=== PATIENT | female | born 1950 | race Caucasian/White ===

== ENCOUNTER 2020-06-22 11:15 | Emergency (ER) | payer MEDICARE, SELFPAY ==
[2020-06-22] VITALS (20 sets, daily range): BP systolic 128–174; BP diastolic 62–106; PULSE 69–80; RESP 11–22; TEMP 36.9; O2SAT 93–100
--- NOTE | ~2020-06-22 | CT_ITS ---
EXAMINATION: CTA chest PE protocol DATE: 06/22/2020 13:35 INDICATION: Dyspnea. Elevated d-dimer. TECHNIQUE: Computed tomography angiography (CTA) of the chest was performed with 100 mL Omnipaque-350 intravenous contrast timed to evaluate the pulmonary arteries. Coronal maximum intensity projection 3D-reconstructions were created by the technologist. Automated exposure control and iterative reconst ruction technique were employed. Exam dose: 789.78 mGy-cm total exam DLP. Scan COMPARISON: 06/22/2020 2 view chest FINDINGS: There is diagnostic contrast enhancement of the pulmonary arteries and no evidence of pulmo nary embolism. No thoracic aortic aneurysm or dissection. Heart size is within normal limits. No hilar or mediastinal mass lesion or lymphadenopathy. No pulmonary infiltrate or consolidation or suspicious pulmonary mass lesion is detected. Normal morphology of the adrenal glands. No suspicious osteolytic or osteoblastic lesions. Degenerative changes of the thoracic spine. IMPRESSION: No evidence of pulmonary embolism Reviewed, dictated and finalized at [facility]. Reviewed, dictated and finalized at location A. [employer]
--- NOTE | ~2020-06-22 | XR_ITS ---
XR chest 2V DATE: 06/22/2020 12:07 INDICATION: Left-sided chest pain. Dyspnea. TECHNIQUE: PA and lateral views COMPARISON: 12/16/2018 2 view chest FINDINGS: Heart size is within normal limits. There is minimal aortic unfolding. No hilar or mediasti nal enlargement. No pulmonary infiltrate or consolidation, pleural effusion or pulmonary vascular congestion or pneumo thorax. IMPRESSION: No active cardiopulmonary disease Reviewed, dictated and finalized at location A. TATION SUPERVISOR
--- NOTE | ~2020-06-22 | CT_ITS ---
EXAMINATION: CT brain wo con DATE: 06/22/2020 12:17 INDICATION: Hypertension presenting with headache and dizziness TECHNIQUE: Computed tomography (CT) of the head was performed without intravenous contrast. Sagittal and coronal reconstructions were performed. The mA was adjusted according to patient size. Iterative reconstruction technique was employed. The dose-length product was 605.33 mGy-cm. COMPARISON: head CT dated 11/02/2007 FINDINGS: No acute intracranial hemorrhage, acute infarction or abnormal extra axial fluid collection. Unchange d small old lacunar infarct at the right caudate nucleus. Symmetric prominence of the sulci and subar achnoid spaces overlying the convexities consistent with mild to moderate age-appropriate diffuse cer ebral volume loss. Ventricles are normal and symmetric. No mass/mass effect. Changes of bilateral int raocular lens replacement. The orbits, paranasal sinuses and mastoid air cells are normal. IMPRESSION: 1. Unchanged small old lacunar infarct at the right caudate nucleus. No acute intracranial process. Reviewed, dictated and finalized at location [facility]. GYNECOLOGY IMPRESSION: 1. Unchanged small old lacunar infarct at the right caudate nucleus. No acute i ntracranial process.
--- NOTE | 2020-06-22 11:21 | ED.CHESTPAIN ---
HPI - Chest Pain General Chief Complaint: Chest Pain Stated Complaint: High BP, left arm pain Time Seen by Provider: 06/22/20 11:21 Source: patient and family Mode of arrival: ambulatory Limitations: no limitations History of Present Illness HPI narrative: Patient is a 69-year-old female with a history of anxiety, depression, hypertension who presents for evaluation of left-sided chest pain, arm pain, shortness of breath. Her symptoms have been present for three weeks. No worsening chest pain today. No new arm pain or jaw pain today. Patient states she was referred here by her psychiatrist after having her psychiatry appointment this morning when she explained some of her symptoms to him. She states that she recently discontinued her Xanax medication 3 weeks ago, and initially attributed many of the symptoms which have been ongoing over the past 3 weeks to that. She states that at times she has been dizzy with awakening but that it is intermittent throughout the day. She denies nausea, vomiting. No central chest pain but does report she has some soreness over her left chest and into her left shoulder, but denies any recent heavy lifting. She states she feels short of breath without any cough. No fever, chills, rhinorrhea or congestion. No myalgias. No abdominal pain, no flank pain. Patient has been ambulatory. She states she has had a headache as well. She states she has been more anxious lately, but denies new stress. No calf swelling or leg pain. No recent surgeries or recent travel. She is also reporting some mild left ear pain without discharge. Related Data Home Medications Medication Instructions Recorded Confirmed alprazolam 0.25 mg tablet 0.25 mg PO DAILY PRN 03/21/20 05/02/20 aspirin 81 mg tablet,delayed 81 mg PO DAILY 03/21/20 05/02/20 release calcium carbonate 500 mg calcium 500 mg PO DAILY 03/21/20 05/02/20 (1,250 mg) tablet cholecalciferol (vitamin D3) 50 50 mcg PO DAILY 03/21/20 05/02/20 mcg (2,000 unit) capsule citalopram 20 mg tablet 20 mg PO DAILY 03/21/20 05/02/20 lamotrigine 25 mg tablet 50 mg PO DAILY tablet 03/21/20 05/02/20 mecobalamin (vitamin B12) 1,000 1,000 mcg PO DAILY 03/21/20 05/02/20 mcg chewable tablet methylphenidate HCl 10 mg tablet 10 mg PO DAILY 03/21/20 05/02/20 Allergies Allergy/AdvReac Type Severity Reaction Status Date / Time Sulfa (Sulfonamide Allergy Unknown Unknown Verified 06/22/20 11:36 Antibiotics) Review of Systems Review of Systems: Narrative: CONSTITUTIONAL: Denies fever, chills, or sweats. EYES: Denies visual changes, redness, or discharge. ENT: Denies rhinorrhea, congestion, sore throat, left ear pain. CARDIOVASCULAR: Reports soreness overlying the left chest, denies palpitations or edema RESPIRATORY: Denies cough, reports shortness of breath GASTROINTESTINAL: Denies abdominal pain, nausea, vomiting, or diarrhea. GENITOURINARY: Denies dysuria or hematuria. SKIN: Denies rash or itching. MUSCULOSKELETAL: Denies back pain, joint pain, or myalgia. NEUROLOGIC: Reports headache without numbness, or weakness. PSYCHIATRIC: Reports anxiety and depression [facility] Past Medical History Medical History Cataract Essential (primary) hypertension Gastro-esophageal reflux disease without esophagitis High cholesterol History of blood transfusion History of colon cancer Major depressive disorder, recurrent, moderate Malignant melanoma of skin, unspecified Surgical History Surgical History History of carpal tunnel repair History of colon resection History of hysterectomy History of incisional hernia repair January 2019 Dr. Mariano History of tonsillectomy History of tubal ligation Status post surgical removal of malignant neoplasm of skin Family History Family History Father Family history of cardiovascular dis
--- NOTE | 2020-06-22 11:25 | ECG_ITS ---
Measurements Intervals [place] Rate: 73 P: 40 ND: 159 QRS: -24 QRSD: 84 T: 21 QT: 352 QTc: 389 Interpretive Statements SINUS RHYTHM BORDERLINE T WAVE ABNORMALITY- ANT/INF LEADS BASELINE WANDER- I, II, AVR, AVL, AVF, V1-V3 BORDERLINE ECG Electronically Signed On 06-22-2020 14:25:57 HRIS SPECIALIST by Jake Carver D.O.
[2020-06-22] MEDS: ASPIRIN 81 MG CHEWABLE TABLET 324 MG PO (11:29)
[2020-06-22 11:38] LABS: Hematocrit 45.6 % (37.0-47.0); Hemoglobin 15.1 g/dL (12.0-15.0); Mean Corpuscular HGB Conc 33.1 g/dl (32-36); Mean Corpuscular Hemoglobin 31.4 pg (26-34); Mean Corpuscular Volume 94.8 fl (80-100); Mean Platelet Volume 10.5 fl (7.4-10.4); Platelet Count Result 377 k/mm3 (150-375); Red Blood Count 4.81 M/mm3 (4.2-5.4); Red Cell Distribution Width 14.4 % (11.5-14.5)
[2020-06-22 11:46] LABS: Atypical Lymphocytes Present; Band Neutrophils Percent 1 % (0-6); Eosinophils Percent Manual 4 % (0-4); Monocytes Percent Manual 14 % (3-9); Neutrophils Percent Manual 41 % (46-73); Platelet Estimate Adequate (Adequate); Total Cells Counted 100
[2020-06-22 11:47] LABS: Stomatocytes 1+ (NORMAL)
[2020-06-22 11:51] LABS: INR 0.8
[2020-06-22 11:52] LABS: Partial Thromboplastin Time 26.3 SECONDS (22.3-36.8)
[2020-06-22 12:03] LABS: Troponin I < 0.012 ng/mL (0.000-0.034)
[2020-06-22 12:11] LABS: D Dimer 0.53 ug/mL (<0.48)
[2020-06-22 12:58] LABS: Anion Gap 10 mmol/L (8-16); Blood Urea Nitrogen 18 mg/dL (7-17); Calcium 10.9 mg/dL (8.4-10.2); Carbon Dioxide 30 mmol/L (22-30); Chloride 101 mmol/L (98-107); Glucose 115 mg/dL (65-105); Potassium 4.7 mmol/L (3.4-5.0); Sodium 141 mmol/L (137-145)
[2020-06-22] MEDS: MECLIZINE HCL 25 MG TABLET PO (13:00)
[2020-06-22 13:04] LABS: Estimated Glomerular Filt Rate > 60
[2020-06-22 13:05] LABS: Estimated CRCL calculation 59 ml/min
[2020-06-22 13:06] LABS: NT Pro B Type Natriuretic Pept 27 PG/ML (5-100)
[2020-06-22] MEDS: MAGNESIUM SULF 2 GM/WATER 50ML 2 GM/50 ML BAG IVPB (13:42)
[2020-06-22] MEDS: SODIUM CHLORIDE 0.9% IV 1,000 ML 999 ML IV CONT (13:43)
[2020-06-22 14:41] LABS: Add Urine Microscopic? YES; Appearance Urine Clear (Clear); Bilirubin Urine Negative (Negative); Blood Urine Negative (Negative); Color Urine Colorless (Yellow); Glucose Urine UA Negative (Negative); Ketones Urine Negative (Negative); Leukocyte Esterase Ur 2+ LEU/UL (Negative); Nitrate Urine Negative (Negative); Protein Urine Negative (Negative); RBC Urine 0-2 /hpf (0-2); Squamous Epithelial Cell Urine Rare /hpf (Few); Urobilinogen Urine Negative mg/dL (<2.0); WBC Urine 21-30 /hpf
[2020-06-22 14:42] LABS: Specific Grav Ur 1.033 (1.001-1.035)
== END 2020-06-22 14:53 | disposition home or self-care (01) ==
PROVIDERS: Emergency Provider Emergency Medicine; PCP Family Medicine
DX: R42 Dizziness and giddiness (principal); R07.89 Other chest pain; R06.02 Shortness of breath; I10 Essential (primary) hypertension; K21.9 Gastro-esophageal reflux disease without esophagitis; F32.9 Major depressive disorder, single episode, unspecified; Z79.899 Other long term (current) drug therapy
CPT/HCPCS: 36415; 70450; 71046; 71275; 80048; 81001; 83880; 84484; 85025; 85380; 85610; 85730; 87086; 93005; 96365; 99284; A9270; J3475; J7030; Q9967

== ENCOUNTER → 2021-05-26 12:56 | Outpatient (CLI) | payer MEDICARE, SELFPAY ==
--- NOTE | ~2021-05-26 | XR_ITS ---
XR hip RT 2V w AP pelvis 05/26/2021 13:36 Indication: Right hip pain Procedure: 3 views right hip Comparison: No prior studies for comparison. Findings: No fracture, subluxation or dislocation. No significant joint space narrowing. There is adelso tomic alignment. Sacral foramen are symmetric. Pelvic rings are intact. Impression: 1: No significant bone or joint abnormality. Reviewed, dictated and finalized at location A. IAC CATH LAB MANAGER Impression: 1: No significant bone or joint abnormality.
--- NOTE | ~2021-05-26 | XR_ITS ---
XR lumbar spine 2-3V 05/26/2021 13:36 Indication: Back pain Procedure: 3 views lumbar spine Comparison: No prior studies for comparison. Findings: Vertebral body heights are maintained. No fracture, subluxation or dislocation. No evidence for spondylolisthesis. There is mild facet degenerative change at L4-5 and L5-S1. Impression: 1: Mild lumbar spondylosis. Reviewed, dictated and finalized at location A. TRIMMER Impression: 1: Mild lumbar spondylosis.
== END ==
PROVIDERS: PCP Family Medicine; Visit Provider Physician Assistant
DX: M25.551 Pain in right hip (principal); M47.896 Other spondylosis, lumbar region
CPT/HCPCS: 72100; 73502

== ENCOUNTER 2022-02-02 10:01 | Outpatient (CLI) | payer MEDICARE, SELFPAY ==
--- NOTE | 2022-02-02 10:06 | EST_ITS ---
Patient Info Name: Sandra Kulkarni Age: 71 years : 1950 Gender: Female Ht: 62 in Wt: 200 lbs BSA: 2.04 m2 HR: 74 bpm BP: 141 / 77 mmHg Heart Rhythm: Sinus Rhythm Technical Quality: Fair Exam Date: 02/02/2022 10:54 AM Exam Location: [facility] Patient Status: Outpatient Admit Date: 02/02/2022 Staff Ordering Physician: Josy Gaitan PA-C Tennis Ball Cover Cementer: Priscilla Eldridge RDCS Attending Provider: MERCEDES RIZVI DO Referring Physician: Arnie VIERA; Exam Type: CA stress echo Study Info Indications R06.02 - Shortness of breath Treadmill exercise stress echocardiogram is performed. Summary 1. 1. Negative Biju exercise stress test for ischemic ST changes by ECG criteria. 2. 2. Reduced functional capacity, achieving 6.8 METs of workload. 3. 3. Baseline hypertension. 4. 4. Appropriate HR response to exercise. 5. 5. Appropriate HR recovery at 1 minute post exercise. 6. 6. Negative stress echocardiogram for ischemia by wall motion analysis. 7. 7. Patient informed of the above results. Stress Echo Findings Left Ventricle Appropriate increase in LV endocardial thickening with systole. Appropriate augmentation of contractility with systole. No wall motion abnormality. Left Ventricle Normal LV systolic function, no wall motion abnormality. Protocol: Biju Stress ECG Details Stage: REST Duration (min): 6 min : 43 sec Speed (mph): 0.0 Grade (%): 0 HR (bpm): 72 SBP (mmHg): 141 DBP (mmHg): 77 METS: --- Stage: REST Duration (min): 17 min : 23 sec Speed (mph): 0.0 Grade (%): 0 HR (bpm): 85 SBP (mmHg): 141 DBP (mmHg): 77 METS: --- Stage: STAGE 1 Duration (min): 1 min : 0 sec Speed (mph): 1.7 Grade (%): 10 HR (bpm): 55 SBP (mmHg): 141 DBP (mmHg): 77 METS: --- Stage: STAGE 1 Duration (min): 2 min : 0 sec Speed (mph): 1.7 Grade (%): 10 HR (bpm): 85 SBP (mmHg): 141 DBP (mmHg): 77 METS: --- Stage: STAGE 1 Duration (min): 3 min : 0 sec Speed (mph): 1.7 Grade (%): 10 HR (bpm): 123 SBP (mmHg): 191 DBP (mmHg): 66 METS: --- Stage: STAGE 2 Duration (min): 1 min : 0 sec Speed (mph): 2.5 Grade (%): 12 HR (bpm): 113 SBP (mmHg): 191 DBP (mmHg): 66 METS: --- Stage: STAGE 2 Duration (min): 1 min : 16 sec Speed (mph): 0.0 Grade (%): 0 HR (bpm): 131 SBP (mmHg): 191 DBP (mmHg): 66 METS: --- Stage: RECOVERY Duration (min): 0 min : 43 sec Speed (mph): 0.0 Grade (%): 0 HR (bpm): 111 SBP (mmHg): 149 DBP (mmHg): 85 METS: --- Stage: RECOVERY Duration (min): 1 min : 43 sec Speed (mph): 0.0 Grade (%): 0 HR (bpm): 86 SBP (mmHg): 149 DBP (mmHg): 85 METS: --- Stage: RECOVERY Duration (min): 2 min : 43 sec Speed (mph): 0.0 Grade (%): 0 HR (bpm): 79 SBP (mmHg): 119 DBP (mmHg): 74 METS: --- Stage: RECOVERY Duration (min):
== END 2022-02-02 10:02 | disposition home or self-care (01) ==
PROVIDERS: PCP Emergency Medicine; Visit Provider Family Medicine
DX: R06.02 Shortness of breath (principal)
CPT/HCPCS: 93351

== ENCOUNTER → 2022-02-21 16:04 | Outpatient (CLI) | payer MEDICARE, SELFPAY ==
--- NOTE | ~2022-02-21 | DEXA_ITS ---
Bone Density Report Name: WILBER DOMINGUEZ Age: 71 Sex: Female Ethnicity: White Date of : 1950 Indication: postmenopausal; screening for osteoporosis; height loss; cancer; hysterectomy; Referring Provider: Josy Gaitan Study: Bone densitometry was performed. Exam Date: February 21, 2022 Accession number: [id number] Bone Density: Region BMD T-score Z-score Classification AP Spine (L1-L4) 1.040 -0.1 2.1 Normal Femoral Neck (Left) 0.719 -1.2 0.7 Osteopenia Total Hip (Left) 0.958 0.1 1.7 Normal Femoral Neck (Right) 0.743 -1.0 0.9 Normal Total Hip (Right) 0.975 0.3 1.8 Normal Total Hip Mean 0.967 0.2 1.8 Normal World Health Organization criteria for BMD impression classify patients as: Normal (T-score at or above -1.0), Osteopenia (T-score between -1.0 and -2.5), or Osteoporosis (T-score at or below -2.5). 10-year Fracture Risk(1): Major Osteoporotic Fracture 8.6% Hip Fracture 1.0% Reported Risk Factors: [place] (), Neck BMD=0.719, BMI=36.4 (1) FRAX(R) Version 3.08. Fracture probability calculated for an untreated patient. Fracture probability may be lower if the patient has received treatment. Clinical Information Provided by Patient: Has used the following medications: Vitamin D Has the following medical conditions: Cancer, Hysterectomy Patient maximum height was 64 Menopause Age: 33 No regular weight bearing exercise Drinks caffeinated beverages Onset of menses at age 11 Number of children 3 Impression: The patient has low bone mass, based on the Left Femoral Neck T-score. The patient has an estimated ten-year risk of hip fracture of 1% and an estimated ten-year risk of major fracture of 8.6%, based on the WHO FRAX algorithm. Discussion: BONE DENSITY IS LOW AT ONE OR MORE SKELETAL SITES. This patient's lowest T-score is low at one or more skeletal sites. It meets the World Health Organization's (WHO) criteria for ?low bone mass? (T-score between -1.0 and -2.5). The patient's 10-year risk of fracture as calculated by FRAX is less than the threshold where pharmacological therapy is recommended by the National Osteoporosis Foundation (NOF). However, all treatment decisions require clinical judgment and consideration of individual patient factors, including patient preferences, comorbidities, previous drug use, risk factors not captured in the FRAX model (e.g., frailty, falls, vitamin D deficiency, increased bone turnover, interval significant decline in bone density) and possible under or overestimation of fracture risk by FRAX. The patient should follow a healthful lifestyle (good nutrition with adequate calcium and vitamin D, and appropriate weight-bearing exercise). Follow-Up: Consider repeating this study in 2 to 3 years to reassess this patient's status, or sooner if
== END ==
PROVIDERS: PCP Physician Assistant; Visit Provider Physician Assistant
DX: Z78.0 Asymptomatic menopausal state (principal); M85.852 Other specified disorders of bone density and structure, left thigh
CPT/HCPCS: 77080

== ENCOUNTER 2022-09-23 11:55 | Emergency (ER) | payer MEDICARE, SELFPAY ==
--- NOTE | 2022-09-23 12:01 | ED.URI ---
HPI - URI/Sore Throat General Chief Complaint: Upper Respiratory Infection Stated Complaint: cough, congestion,wheezing,lt ear pain Time Seen by Provider: 09/23/22 12:01 Source: patient Mode of arrival: ambulatory Limitations: no limitations History of Present Illness HPI Narrative: Yadira is a 72-year-old female patient presenting to the clinic today with complaints of cough, congestion, wheezing, and left ear pain 2 weeks. She reports she was seen by her PCP and diagnosed with bronchitis and given Tessalon Perles and azithromycin. The patient states that she does have an albuterol inhaler to use. She denies any fever or chills MD elicited complaint: cough, nasal congestion and other (Wheezing, left ear pain) Related Data Home Medications Medication Instructions Recorded Confirmed aspirin 81 mg tablet,delayed 81 mg PO DAILY 03/21/20 09/23/22 release (Adult Aspirin Regimen) mecobalamin (vitamin B12) 1,000 1,000 mcg PO DAILY 03/21/20 09/23/22 mcg chewable tablet methylphenidate HCl 10 mg tablet 10 mg PO DAILY 03/21/20 09/23/22 (Ritalin) buspirone 5 mg tablet 5 mg PO BID 07/21/20 09/23/22 sertraline 50 mg tablet 75 mg PO DAILY 12/20/21 09/23/22 metoprolol tartrate 100 1 tablet PO DAILY 09/23/22 09/23/22 mg-hydrochlorothiazide 25 mg tablet Allergies Allergy/AdvReac Type Severity Reaction Status Date / Time Sulfa (Sulfonamide Allergy Unknown Unknown Verified 09/23/22 12:06 Antibiotics) Review of Systems Review of Systems: Pertinent positives per HPI. Patient denies any fever, chills, rash, headache, visual changes, dizziness, cough, shortness of breath, chest pain, palpitations, nausea, vomiting, diarrhea, constipation, abdominal pain, or any urinary issues. [facility] Past Medical History Medical History Cataract Essential (primary) hypertension Gastro-esophageal reflux disease without esophagitis High cholesterol History of blood transfusion History of colon cancer Major depressive disorder, recurrent, moderate Malignant melanoma of skin, unspecified Surgical History Surgical History History of carpal tunnel repair History of colon resection History of hysterectomy History of incisional hernia repair January 2019 Dr. Mariano History of tonsillectomy History of tubal ligation Status post surgical removal of malignant neoplasm of skin Family History Family History Father Family history of cardiovascular disease Diabetes mellitus Family history of malignant neoplasm of skin Hypertension Sibling Family history of malignant neoplasm of breast Hypertension Family history of malignant neoplasm of thyroid Mother Family history of thyroid disease Cerebrovascular accident Hypertension Grandparent Family history of malignant neoplasm of breast Carcinoma of colon Other Family history of allergic disorder Family history of malignant neoplasm Family history of malignant neoplasm of breast in first degree relative Social History Social History Smoking status: Former smoker Second hand tobacco smoke exposure: No Alcohol intake: current Drinks per week: 1 Alcohol use details: social Substance use: never Substance use type: does not use Lack of Transportation: No Lack of Food: Never True Current Housing: I Have Housing Concerned About Future Housing: No Difficulty Paying Gas/Electric Bills: No Difficulty Paying for Meds: No Currently Unemployed: No Education: Decline to Answer Difficulty w/ Childcare or Family Care: No Living arrangements: with family Occupation/Education: retired Gender identity (if verbalized by the patient): Female Spiritual care concerns: Yes (Pentecostalism) Agree to blood products: Yes C
[2022-09-23 12:05] VITALS: BP 129/59; PULSE 76; RESP 16; TEMP 37.2; O2SAT 97
[2022-09-23 12:09] VITALS: BP 129/59; PULSE 76; RESP 16; TEMP 37.2; O2SAT 97
== END 2022-09-23 12:13 | disposition home or self-care (01) ==
PROVIDERS: Emergency Provider Nurse Practitioner Family; PCP Emergency Medicine
DX: J40 Bronchitis, not specified as acute or chronic (principal); H26.9 Unspecified cataract; I10 Essential (primary) hypertension; K21.9 Gastro-esophageal reflux disease without esophagitis; F32.9 Major depressive disorder, single episode, unspecified; Z85.038 Personal history of other malignant neoplasm of large intestine; Z85.828 Personal history of other malignant neoplasm of skin; Z79.82 Long term (current) use of aspirin
CPT/HCPCS: 99213; G0463

== ENCOUNTER → 2022-10-02 09:11 | Outpatient (CLI) | payer MEDICARE, SELFPAY ==
--- NOTE | ~2022-10-02 | CT_ITS ---
CT of the Abdomen and Pelvis: Indication: Umbilical nodule Technique: 2.5 mm axial scans were obtained through the abdomen and pelvis following intravenous adm inistration of 100 cc of Omnipaque 350. Dose reduction technique was used on this scan by utilizing a utomated exposure control and iterative reconstruction technique. The dose-length product (DLP) was 9 68.92 mGy-cm. COMPARISON: 12/08/2018 Findings: Scans through the lung bases are unremarkable. The liver, spleen, pancreas, gallbladder, adrenals and kidneys are within normal limits. No evidence of aortic aneurysm. No lymphadenopathy. No bowel obstruction or bowel wall thickening. There is no evidence to suggest acute appendicitis. Pr obable tiny fat-containing umbilical hernia noted. Images through the pelvis were performed. Urinary bladder unremarkable. Patient is post hysterectomy. No pelvic mass. No ascites. Impression: Probable tiny fat-containing umbilical hernia. No other significant findings. Reviewed, dictated and finalized at [facility]. Impression: Probable tiny fat-containing umbilical hernia. No other significant findings.
[2022-10-02 09:32] LABS: Estimated Glomerular Filt Rate > 60
== END ==
PROVIDERS: PCP Emergency Medicine; Visit Provider Surgery
DX: R10.9 Unspecified abdominal pain (principal); R22.2 Localized swelling, mass and lump, trunk; Z87.19 Personal history of other diseases of the digestive system; Z98.890 Other specified postprocedural states
CPT/HCPCS: 74177; Q9967

== ENCOUNTER → 2022-10-09 08:38 | Outpatient (CLI) | payer MEDICARE, SELFPAY ==
--- NOTE | ~2022-10-09 | XR_ITS ---
Clinical Indication: Cough PA and lateral views of the chest: Comparison: 06/22/2020 Findings: The lungs are clear, without evidence of focal consolidation or pleural effusion. Cardiome diastinal silhouette is within normal limits. Bones and soft tissues are unremarkable. Impression: Normal chest. Reviewed, dictated and finalized at [facility]. Impression: Normal chest.
== END ==
PROVIDERS: PCP Emergency Medicine; Visit Provider Nurse Practitioner Family
DX: R05.9 Cough, unspecified (principal); R06.02 Shortness of breath
CPT/HCPCS: 71046

== ENCOUNTER → 2023-07-16 10:16 | Outpatient (CLI) | payer MEDICARE, SELFPAY ==
--- NOTE | ~2023-07-16 | XR_ITS ---
Left wrist Technique: PA, oblique, lateral, and ulnar deviation views were obtained. Clinical History: Neuralgia Findings: No acute fracture or dislocation is seen. Osseous alignment is anatomic. There is mild dege nerative change at the STT articulations. Soft tissues are unremarkable. Impression: Mild degenerative change of the STT articulations. Reviewed, dictated and finalized at location . OSITION INSTRUCTOR Impression: Mild degenerative change of the STT articulations.
--- NOTE | ~2023-07-16 | XR_ITS ---
Left Hand Technique: PA, oblique, and lateral views were obtained. Clinical History: Neuralgia Findings: No acute fracture or dislocation is seen. Osseous alignment is anatomic. Joint spaces are p reserved. Soft tissues are unremarkable. Impression: Unremarkable left hand. Reviewed, dictated and finalized at location M. NG MANAGER Impression: Unremarkable left hand.
== END ==
PROVIDERS: PCP Emergency Medicine; Visit Provider Emergency Medicine
DX: M79.2 Neuralgia and neuritis, unspecified (principal); M25.542 Pain in joints of left hand
CPT/HCPCS: 73110; 73130

== ENCOUNTER 2023-08-07 13:11 | Outpatient (CLI) | payer MEDICARE, SELFPAY ==
--- NOTE | 2023-08-07 14:30 | NEURO_ITS ---
Impression: # Complains of pain in left mid forearm. # Subtle evolving left Carpal Tunnel Syndrome. # No ulnar neuropathy. # Normal needle/EMG exam including APL. # Clinical correlation recommended. Nerve Conduction Studies Anti Sensory Summary Table Stim Site NR Peak (ms) P-T Amp (?V) Site1 Site2 Delta-P (ms) Dist (cm) Jean (m/s) Left Median Anti Sensory (2-3nd Digit) Wrist 3.3 25.1 Wrist 2-3nd Digit 3.3 14.0 42 Wrist 3.5 18.8 Wrist 2-3nd Digit 3.3 14.0 42 Left Radial Anti Sensory (Base 1st Digit) Wrist 2.0 23.0 Wrist Base 1st Digit 2.0 0.0 Left Ulnar Anti Sensory (5th Digit) Wrist 2.4 24.6 Wrist 5th Digit 2.4 14.0 58 Motor Summary Table Stim Site NR Onset (ms) O-P Amp (mV) Site1 Site2 Delta-0 (ms) Dist (cm) Jean (m/s) Left Median Motor (Abd Poll Brev) Wrist 3.8 2.1 Elbow Wrist 5.0 32.0 64 Elbow 8.8 1.5 Left Ulnar Motor (Abd Dig Minimi) Wrist 2.2 5.9 A Elbow Wrist 5.6 34.0 61 A Elbow 7.8 3.9 F Wave Studies NR F-Lat (ms) L-R F-Lat (ms) Left Median (Mrkrs) (Abd Poll Brev) 27.27 Left Ulnar (Mrkrs) (Abd Dig Min) 26.92 EMG Side Muscle Nerve Root Ins Act Fibs Amp Dur Recrt Comment Left 1stDorInt Ulnar C8-T1 Nml Nml Nml Nml Nml Left Ext Indicis Radial (Post Int) C7-8 Nml Nml Nml Nml Nml Left Ext Digitorum Radial (Post Int) C7-8 Nml Nml Nml Nml Nml Left BrachioRad Radial C5-6 Nml Nml Nml Nml Nml Left PronatorTeres Median C6-7 Nml Nml Nml Nml Nml Left Abd Poll Brev Median C8-T1 Nml Nml Nml Nml Nml Left ABD Dig Min Ulnar C8-T1 Nml Nml Nml Nml Nml Left Abd Poll Long Radial (Post Int) C7-8 Nml Nml Nml Nml Nml MTDD
== END 2023-08-07 13:12 | disposition home or self-care (01) ==
LOC: ANHNEURO 13:13
PROVIDERS: PCP Emergency Medicine; Visit Provider Emergency Medicine
DX: G56.02 Carpal tunnel syndrome, left upper limb (principal)
CPT/HCPCS: 95886; 95909

== ENCOUNTER → 2023-08-14 13:42 | Outpatient (CLI) | payer MEDICARE, SELFPAY ==
--- NOTE | ~2023-08-14 | XR_ITS ---
EXAMINATION: XR_CERV2-3V_CR DATE: 08/14/2023 13:56 INDICATION: Neuralgia and neuritis, unspecified. TECHNIQUE: 3 views of cervical spine were obtained. COMPARISON: None. FINDINGS: Bone alignment is normal. Vertebral body heights are normal. There is mildly decreased disc height at C4-C5 and moderately decreased disc height at C6-C7. There is multilevel mild facet joint osteoarthritis. There is mild central canal stenosis at C6-C7. No prevertebral soft tissue swelling. IMPRESSION: 1. Moderate cervical spondylosis. Reviewed, dictated and finalized at location E. ROUGHER
== END ==
PROVIDERS: PCP Emergency Medicine; Visit Provider Emergency Medicine
DX: M43.02 Spondylolysis, cervical region (principal)
CPT/HCPCS: 72040

== ENCOUNTER 2023-09-24 12:30 | Outpatient (RCR) | payer MEDICARE, SELFPAY ==
--- NOTE | 2023-08-28 14:04 | OPREHPOC ---
Outpatient Therapy Plan of Care This is a Multidisciplinary Plan of Care that may contain components documented by all disciplines (PT, OT, and ST.) PT Problem 1 PT Problem #1 Knowledge Deficit PT Goal 1 Goal Pt to be IND with issued HEP Target Visit 8 PT Problem 2 PT Problem #2 Pain PT Goal 1 Goal Pt to report hand pain no greater than 3/10 in the last week. Target Visit 8 PT Goal 2 Goal Pt to report 75% improvement in overall symptoms. Target Visit 8 PT Problem 3 PT Problem #3 Impaired Range of Motion PT Goal 1 Goal Pt to improve cervical lateral flexion ROM to 30 deg ambika Target Visit 8 PT Goal 2 Goal Pt to report increase in pain with passive wrist flexion Target Visit 8 PT Problem 4 PT Problem #4 Impaired Sensation PT Goal 1 Goal Pt to decline radicular symptoms in the last week. Target Visit 8
--- NOTE | 2023-08-28 14:04 | PTOPEVAL1 ---
Assessment and note entered by Aurelio Nayak, PT, DPT Evaluation Information Assessment Status Evaluation Diagnosis cervical spondylosis Subjective Information Pt states she has no neck pain, and never has neck pain. She reports numbness and tingling in her L thumb, index finger, and into her anterior forearm . Intermittently she will get pain above the elbow , but not often. She reports this pain/sensation started over a year ago. She states reading for a longer time will cause her pain to increase. Reported Pain Level Pain Score 0,0: Self Report Assessment PT Clinical Summary Sandra presents to therapy today for her initial evaluation with a diagnosis of cervical spondylosis. Today she demonstrates forward head and increased cervical lordosis. She demonstrates a positive cervical distraction test but also positive peripheral neural compression tests. UE strength and ROM is equal ambika., cervical ROMs are slightly limited, all without an increase in pain. Skilled therapy services are indicated to address the deficits noted above, to improve posture, to reduce peripheral symptoms, and to return to PLOF. Plan of Care Interventions Electrical Stimulation,Hot Pack/Cold Pack,Manual Therapy,Mechanical Traction,Neuro Re-education, Patient/Caregiver Educati,Therapeutic Activities, Therapeutic Exercise PT Services Indicated Yes Treatment Frequency and 2x/wk for 8 visits Duration These treatments will address the objective and functional deficits as defined above. The patient will be advanced safely and appropriately in order for the patient to progress towards his/her prior level of function. Additional exercises will be introduced and as well as a comprehensive home exercise program upon discharge, if needed, ?to ensure carryover of functional gains achieved in the clinic. This treatment plan has been reviewed and agreement upon by the patient.
--- NOTE | 2023-09-24 13:06 | PTOPDC ---
Assessment and note entered by Aurelio Nayak, PT, DPT Evaluation Information Assessment Status discharge Diagnosis cervical spondylosis Subjective Information Pt states was the most painful night she has had in quiet a while. She states she would get intermittent hand, thumb, wrist, and forearm pain. She states since starting therapy, her hand/arm does not burn as often as it normally does. She states now it is more of a dull ache vs a sharp pain. Reported Pain Level Pain Score 2: Self Report Assessment PT Clinical Summary Sandra presents to therapy today for her progress report following 8 visits of skilled therapy to treat her diagnosis of cervical spondylosis. Today she demonstrates improved cervical ROM with a decrease in wrist and elbow pain. She reports a 50 % improvement in her symptoms. Pt states she is IND with her HEP and would like to continue with this and follow up with her referring provider if she does not continue to improve.
== END 2023-09-24 14:40 | disposition home or self-care (01) ==
LOC: ANHGOSHPT 12:30
PROVIDERS: PCP Emergency Medicine; Visit Provider Emergency Medicine
DX: M47.812 Spondylosis without myelopathy or radiculopathy, cervical region (principal)
CPT/HCPCS: 97012; 97110; 97140; 97161; 97530

== ENCOUNTER 2024-08-24 22:07 | Emergency (ER) | payer MEDICARE, SELFPAY ==
[2024-08-24 22:12] VITALS: BP 181/79; PULSE 77; RESP 15; TEMP 36.3; O2SAT 95
--- NOTE | 2024-08-25 02:16 | ED.WOUNDLAC ---
HPI - Wound/Laceration General Chief Complaint: Wound/Laceration Stated Complaint: fall with right elbow lac, daily asa Time Seen by Provider: 08/25/24 02:11 History of Present Illness HPI narrative: 74-year-old female presents emergency department for laceration to her right elbow. Patient states she was at a concert last night when her heel got stuck in a crack in the sidewalk and caused her to fall. She hit her right elbow on the ground. She did not hit her head or lose consciousness. She states she fell on her knees and is reporting some diffuse soreness, but denies any focal or serious pain and does not want imaging of her knees. She denies neck pain, back pain or other injuries acquired. Last Tdap unknown. Related Data Home Medications ?Medication ?Instructions ?Recorded ?Confirmed ?Last Taken ?Type aspirin 81 mg tablet,delayed 81 mg PO DAILY 03/21/20 12/19/23 06/22/20 History release (Adult Aspirin Regimen) mecobalamin (vitamin B12) 1,000 1,000 mcg PO DAILY 03/21/20 12/19/23 06/22/20 History mcg chewable tablet methylphenidate HCl 10 mg tablet 10 mg PO DAILY 03/21/20 12/19/23 06/22/20 History (Ritalin) buspirone 5 mg tablet 5 mg PO BID 07/21/20 12/19/23 Unknown History omega 5-fea-dyp-fish oil 60 mg-90 1 cap PO DAILY 10/30/23 12/19/23 Unknown History mg-500 mg capsule (Fish Oil) alprazolam 0.25 mg tablet mg PO 12/19/23 12/19/23 Unknown History Allergies Allergy/AdvReac Type Severity Reaction Status Date / Time Sulfa (Sulfonamide Allergy Unknown Unknown Verified 12/19/23 12:47 Antibiotics) Review of Systems Review of Systems: All systems reviewed & are unremarkable except as noted in HPI and below PMFSH Past Medical History Medical History Cataract History of blood transfusion High cholesterol Essential (primary) hypertension Gastro-esophageal reflux disease without esophagitis History of colon cancer Major depressive disorder, recurrent, moderate Malignant melanoma of skin, unspecified Surgical History Surgical History History of incisional hernia repair January 2019 Dr. Mariano Status post surgical removal of malignant neoplasm of skin History of carpal tunnel repair History of tonsillectomy History of colon resection History of hysterectomy History of tubal ligation Family History Family History Father Family history of cardiovascular disease Diabetes mellitus Family history of malignant neoplasm of skin Hypertension Sibling Family history of malignant neoplasm of breast Hypertension Family history of malignant neoplasm of thyroid Mother Family history of thyroid disease Cerebrovascular accident Hypertension Grandparent Family history of malignant neoplasm of breast Carcinoma of colon Other Family history of allergic disorder Family history of malignant neoplasm Family history of malignant neoplasm of breast in first degree relative Social History Social History Smoking status: Former smoker Second hand tobacco smoke exposure: No Alcohol intake: current Drinks per week: 1 Alcohol use details: social Substance use: never Substance use type: does not use Lack of Transportation: No Lack of Food: Never True Current Housing: I Have Housing Concerned About Future Housing: No Difficulty Paying Gas/Electric Bills: No Difficulty Paying for Meds: No Currently Unemployed: No Education: Decline to Answer Difficulty w/ Childcare or Family Care: No Living arrangements: with family Occupation/Education: retired Gender identity (if verbalized by the patient): Female Spiritual care concerns: Yes (Sabianist) Agree to blood products: Yes Exam Narrative: GENERAL: Well-appearing, well-nourished, and in no acute distress. HEAD: Normocephalic, atraumatic. EYES: PERRLA and EOMI. ENT: Nares clear, no rhinorrhea or epistaxis. Mucous membranes moist. NECK: No midline spinous tenderness, crepitus, step-offs or deformities BACK: No midline thoracolumbar spinous tenderness, crepitus, step-offs or deformities BACK: No midline thoracolumbar spinous tenderness, crepitus, step-offs or deformities CHEST: Clear to auscultation. No respiratory distress. HEART: Regular rate and rhythm. No murmur heard. Normal peripheral pulses. ABDOMEN: Soft, nontender, nondistended, normal active bowel sounds. EXTREMITIES: 1 cm laceration over the right elbow with full active and passive range of motion, but he structures or foreign bodies visualized, no tenderness remainder of upper extremity, radial pulse 2 +, sensation intact, radial, median and ulnar nerves are intact. No tenderness to BLE with full active and passive range of motion of knees and hips. SKIN: Warm, dry, no rash. NEURO: No focal deficits. Alert and oriented x3 Course Vital Signs Vital signs: Vital Signs Temperature 97.3 F L 08/24/24 22:12 Pulse Rate 77 08/24/24 22:12 Respiratory Rate 15 08/24/24 22:12 Blood Pressure 181/79 H 08/24/24 22:12 Pulse Oximetry 95 08/24/24 22:12 Oxygen Delivery Room Air 08/24/24 22:12 Temperature 97.3 F L 08/24/24 22:12 Pulse Rate 77 08/24/24 22:12 Respiratory Rate 15 08/24/24 22:12 Blood Pressure 181/79 H 08/24/24 22:12 Pulse Oximetry 95 08/24/24 22:12 Oxygen Delivery Room Air 08/24/24 22:12 Procedures Laceration Laceration 1: Date: 08/25/24 Time: 02:42 Site: upper extremity Side (If applicable): right Size (cm): 1 Description: linear Depth: simple, single layer Local Anesthetic: lidocaine 1% Amount of anesthesia used (mL): 2 Pre-repair: wound explored, irrigated and irrigated extensively ====== Skin Level ====== Skin layer closed with: nylon Size (cm): 5-0 Number of sutures: 1 Technique: simple, interrupted ====== Subcutaneous Layer ====== ====== Muscle Layer ====== ====== Tendon Layer ====== MDM - Wound/Laceration MDM Narrative Medical decision making narrative: 74-year-old female presents to the emergency department for a laceration to the right elbow after a mechanical fall that occurred prior to arrival. Patient did not hit her head or lose consciousness. Exam significant for 1 cm laceration over the right elbow, bleeding controlled, no deep structures or foreign bodies visualized. Tetanus updated in the ED. Laceration irrigated extensively with normal saline and closed with 1 suture without complications. Dressing applied. Discussed suture removal in 1 week and wound care. Return precautions provided. She is agreeable with the plan verbalized understanding. Discharged in stable condition. Discharge Plan Discharge Clinical Impression: Laceration Patient Disposition: Home, Self-Care Condition: Stable Instructions: Antibiotic Form, Laceration (ED) Additional Instructions: You had 1 stitch placed in the emergency department to right elbow. Please get this stitch removed in 7 days. Keep the area clean and dry. Return to the emergency department if you develop fever, surrounding redness, drainage or other concerning symptoms. Patient Language: Mongolian Prescriptions: No Action methylphenidate HCl [Ritalin] 10 mg tablet 10 mg PO DAILY aspirin [Adult Aspirin Regimen] 81 mg tablet,delayed release (DR/EC) 81 mg PO DAILY mecobalamin (vitamin B12) 1,000 mcg tablet,chewable 1,000 mcg PO DAILY sertraline 50 mg tablet 75 mg PO DAILY Qty: 90 3RF buspirone 5 mg tablet 5 mg PO BID omega 0-znm-uxr-fish oil [Fish Oil] 60-90-500 mg capsule 1 cap PO DAILY alprazolam 0.25 mg tablet PO metoprolol ta-hydrochlorothiaz 100-25 mg tablet See Rx Instructions .ROUTE .COMPLEX Qty: 90 3RF Dose Instruction: TAKE 1 TABLET DAILY Rx Instructions: TAKE 1 TABLET DAILY omeprazole 40 mg capsule,delayed release(DR/EC) See Rx Instructions .ROUTE .COMPLEX Qty: 90 3RF Dose Instruction: TAKE 1 CAPSULE DAILY Rx Instructions: TAKE 1 CAPSULE DAILY azithromycin 250 mg tablet See Rx Instructions PO .COMPLEX Qty: 6 0RF Rx Instructions: For 250 mg dose pack: take 500 mg today (day 1), then 250 mg for 4 days (days 2-5) PO Follow-up/Referrals: Louise Cardenas MD [Primary Care Provider] -
[2024-08-25] MEDS: TETANUS,DIPHTHERIA,AC PERTUSSIS ADULT (0.5 ML) BOOSTRIX IM (02:25)
[2024-08-25] MEDS: LIDO 1%/EPINEPHRINE 1:100,000 20 ML VIAL 10 ML INFILTRATE (02:26)
[2024-08-25 02:52] VITALS: BP 120/76; PULSE 78; RESP 16; O2SAT 98
== END 2024-08-25 02:53 | disposition home or self-care (01) ==
PROVIDERS: Emergency Provider Physician Assistant; PCP Family Medicine
DX: S51.011A Laceration without foreign body of right elbow, initial encounter (principal); W18.30XA Fall on same level, unspecified, initial encounter; Z23 Encounter for immunization; Z79.82 Long term (current) use of aspirin; E78.00 Pure hypercholesterolemia, unspecified; I10 Essential (primary) hypertension; K21.9 Gastro-esophageal reflux disease without esophagitis; Z85.038 Personal history of other malignant neoplasm of large intestine; Z85.820 Personal history of malignant melanoma of skin; Z87.891 Personal history of nicotine dependence
CPT/HCPCS: 12001; 73080; 90471; 90715; 99283; J2004

== ENCOUNTER 2024-09-17 12:53 | Outpatient (CLI) | payer MEDICARE, SELFPAY ==
--- OUTSIDE RECORDS SUMMARY | 2024-09-17 13:42 | XMS_ITS | Clinical Summary ---
Author Organization [facility] Address [address] [place] [address] Care Team Providers Care Health Claims Examiner Name Role Phone Nicanor Perry MD Unavailable Ethan Chapa MD Primary Care Provider [phone] Allergies Active Allergy Reactions Criticality Noted Date Comments Sulfa (Sulfonamide Antibiotics) Anxiety,Fever High 01/17/2011 Sulfa (Sulfonamide Antibiotics) Agitation Low 01/21/2018 Sulfanilamide Other (See comments) Reaction: Unknown, Medications methylphenidat e HCl (RITALIN) 10 mg tablet Take 1 tablet (10 mg total) by mouth 2 (two) times a day Active omeprazole (PriLOSEC) 10 mg capsule Take 4 capsules (40 mg total) by mouth daily Active fish oil-dha-epa 1,200-144-216 mg capsule Take by mouth. Acti ve aspirin 81 mg tablet Take 1 tablet (81 mg total) by mouth daily Active metoprolol ta-hydrochloro thiaz (LOPRESSOR HCT) 100-25 mg per tablet daily 9 Active busPIRone (BUSPAR) 5 mg tablet Take 1 tablet (5 mg total) by mouth 2 (two) times a day 1 Active sertraline (ZOLOFT) 50 mg tablet Take 1 tablet (50 mg total) by mouth daily for 90 days 2 Active atorvastatin (LIPITOR) 40 mg tabletIndicati ons:Mixed hyperlipidemia ,Coronary artery disease involving [place] coronary artery of [place] heart without angina pectoris Take 1 tablet (40 mg total) by mouth daily 30 tablet 11 3 Active Additional Information Patient not taking.Reported on 03/01/2023 cyanocobalamin (Vitamin B-12) 1,000 mcg tabletIndicati ons:Prevention of Vitamin B12 Deficiency Take 1 tablet (1,000 mcg total) by mouth daily Active ergocalciferol , vitamin D2, (VITAMIN D2 ORAL) Take by mouth 2000iu qd Active mupirocin (BACTROBAN) 2 % ointment Apply topically 2 (two) times a day 22 g 4 Active ALPRAZolam (XANAX) 0.25 mg tablet TAKE 1 TABLET BY MOUTH ONCE DAILY NEEDED FOR 10 DAYS 4 Active azithromycin (ZITHROMAX) 250 mg tablet TAKE 2 TABLETS BY MOUTH ON DAY 1, AND THEN TAKE 1 TABLET BY MOUTH ONCE A DAY ON DAY 2 THROUGH DAY 5 4 Active lamoTRIgine (LaMICtal) 25 mg tablet Take 2 tablets (50 mg total) by mouth daily 1 09/17/19 25 Discontin ued(Other ) pregabalin (LYRICA) 75 mg capsule Take 1 capsule (75 mg total) by mouth 2 (two) times a day 4 09/17/19 25 Discontin ued(Other ) traMADoL (ULTRAM) 50 mg tablet Take 1 tablet (50 mg total) by mouth every 12 (twelve) hours as needed for pain 4 09/17/19 25 Discontin ued(Other ) Active Problems Problem Noted Date Diagnosed Date Acute on chronic congestive heart failure, unspecified heart failure type 08/12/2023 Chest pain 08/30/2022 Encounter for screening mammogram for breast can cer 10/21/2021 Family history of breast cancer 10/21/2021 Mild cognitive disorder 03/09/2019 Gastroesophageal reflux disease 05/06/2018 Pain of right hand 03/19/2018 Brain lesion 03/04/2018 Infected foreign body in right hand 01/29/2018 Neoplasm of uncertain behavior of brain 03/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 17 At risk for breast cancer 09/27/2016 Actinic keratosis 09/12/2015 Basal cell carcinoma (BCC) of face 09/12/2015 History of malignant melanoma of skin 09/12/2015 Chronic fatigue syndrome 07/20/2015 Generalized anxiety disorder 07/20/2015 Severe episode of recurrent major depressive dis order 07/20/2015 Amnesia 02/21/2015 Osteoporosis 11/07/2013 Overview (09/27/2016): Osteoporosis Anxiety 11/07/2013 Overview (09/27/2016): Anxiety Bipolar affective disorder 11/07/2013 Overview (09/27/2016): Bipolar affective Benign hypertension 11/07/2013 Overview (09/27/2016): HTN (hypertension), benign Malignant neoplasm of colon 11/07/2013 Overview (09/27/2016): Colon cancer History of splenectomy 11/07/2013 Overview (09/27/2016): History of splenectomy History of hysterectomy 11/07/2013 Overview (09/28/2016): H/O: hysterectomy Abdominal pain 11/07/2013 Overview (09/28/2016): Abdominal pain Cobalamin deficiency 11/07/2013 Overview (09/28/2016): B12 deficiency Eczema 05/15/2013 Neoplasm of connective and soft tissue 3 Encounters Date Type Department Care Team Description 09/01/2024 Telephone [facility] Neurosurgery [facility] [address] [place] [address] [place] [id number] Jaden Kam Jr., MD 09/01/2024 Orders Only [facility] Neurosurgery [facility] [address] [place] [address] [place] [address] Ashia Pratt NP Brain lesion (Primary Dx) from Last 3 Months Immunizations Immunization Administration Dates Next Due Influenza, Quadrivalent, Split, Intramuscular Influenza, Quadrivalent, Spl it, Preservative Free, Intramuscular 04/08/2018 Influenza, Trivalent, High D ose, Split, Preservative Free, Intramuscular 03/04/2020,06/05/2019 Influenza, Trivalent, IM (MDV) 03/05/2011 Influenza, Trivalent, Preservative Free, Intramu scular 03/24/2016 Moderna SARS-CoV-2 Monovalent Vaccination (12+ Y RS) 09/13/2020,08/04/2020 TD Preservative Free 01/20/2018 Tdap 03/20/2011 ZOSTER Recombinant 07/07/2020,03/16/2020 Surgical History Surgery Date Site/Laterality Comments OTHER SURGICAL HISTORY Severe Depression / Anxiety: [facility] TONSILLECTOMY 1994 Tonsillectomy HYSTERECTOMY 1985 Hysterectomy US UNLISTED PROCEDURE LYMPH SYSTEM 06/05/2013 N/A HYSTERECTOMY Total Hysterectomy - (Added by TW Conv) [place] ENTRC RESCJ SMALL INTESTINE 1 RESCJ & ANAST Small Bowel Resection - (Added by TW Conv) [place] TONSILLECTOMY PRIMARY/SECONDARY <AGE 12 Tonsillectomy - (Added by TW Conv) FACELIFT Reported Hx Of 'Facelift' - (Added by TW Conv) [place] NEUROPLASTY &/TRANSPOS MEDIAN NRV CARPAL TUNNE Neuroplasty Decompression Median Nerve At Carpal Tunnel - (Added by TW Conv) CATARACT EXTRACTION Cataract Surgery - (Added by TW Conv) Medical History Medical History Date Comments Hx Other Medical Severe Depressi on / Anxiety Hx Other Medical B12 Deficiency Hx Other Medical Bipolar Disorde r Malignant neoplasm of colon (HCC) Cancer, colon Personal history of other di seases of the circulatory system History of hypertension - (A dded by TW Conv) Colon cancer (HCC) Skin cancer (melanoma) (HCC) Hypertension Family History Medical History Relation Name Comments Diabetes Father Diabetes mellit us; Heart disease Father Heart disease; /Family history of cardiac disorder - (Added by TW Conv) Heart failure Father Hypertension Father Hypertension; Breast cancer Father's Sister 2 Cancer, b reast; Breast cancer Maternal Grandmother Family history of malignant neoplasm of breast - (Added by TW Conv) Heart disease Maternal Grandmother Family history of cardiac disorder - (Added by TW Conv) Diabetes Mother Ovarian cancer Other 4 Cancer, ovari an; Colon cancer Other 5 Cancer, colon; Leukemia Other 6 Leukemia; Colon cancer Other 7 Family history of colon cancer - Relation: Grandmother (Added by TW Conv) Breast cancer Other 8 Family history of malignant neoplasm of breast - Relation: Grandmother (Added by TW Conv) Heart disease Other 9 Family history of cardiac disorder - Relation: Grandmother (Added by TW Conv) Breast cancer Sister Family history of malignant neoplasm of breast - (Added by TW Conv) Relation Name Status Comments Father Alive Father's Sister 1 Alive Father's Sister 2 Maternal Grandmother Mother Other 1 Alive Other 2 Alive Other 3 Alive Other 4 Other 5 Other 6 Other 7 Other 8 Other 9 Sister Social History Tobacco Use Types Packs/Day Years Used Date Smoking Tobacco: Former Smokeless Tobacco: Never Tobacco Cessation:Counseling Given: Not Answered Alcohol Use Standard Drinks/Week Comments Yes 0 (1 standard drink = 0.6 oz pur e alcohol) Personal Safety Answer Date Recorded Have you ever been in or are you currently in a harmful physical or emotional relationship or is someone making you feel afraid or unsafe? Denies 08/12/2023 Comments No Sex and Gender Information Value Date Recorded Sex Assigned at Not on file Legal Sex Female 2:02 AM [employer] Gender Identity Female 10/11/2023 9:20 AM CDT Sexual Orientation Not on file Occupation Industry Job Start Date Job End Date retired Not on file Not on file Not on file Obstetrics History Last Filed Vital Signs Vital Sign Reading Time Taken Comments Blood Pressure 136/64 08/12/2023 5:48 PM [employer] Pulse 56 08/12/2023 5:48 PM [employer] Temperature 36.6 C (97.8 F) 08/12/2023 10:20 AM [employer] Respiratory Rate 18 08/12/2023 5:48 PM [employer] Oxygen Saturation 98% 08/12/2023 5:48 PM [employer] Inhaled Oxygen Concentration - - Weight 90.7 kg (200 lb) 08/12/2023 10:20 AM [employer] Height 160 cm (5' 3 ) 08/12/2023 10:20 AM [employer] Body Mass Index 35.43 08/12/2023 10:20 AM [employer] Plan of Treatment Health Maintenance Due Date Last Done Comments Depression Screening 1950 Fall Risk Assessment 1950 Hepatitis C Screening 1950 Osteoporosis Screening-Bone Density Scan 1950 Meningococcal B Vaccine (1 o f 5 - Increased Risk) 1961 Hepatitis B Screening 1969 Pneumococcal vaccine 65+ (1 of 2 - PCV) 1970 Well Visit 65+ 2016 Covid-19 Vaccine (3 - 2023-2 5 season) 2024 09/13/2020, 08/04/2020 Influenza Vaccine (#1) 2024 , 06/05/2019, 04/08/2018, Additional history exists Breast Cancer Screening-Mammogram 10/28/2024 10/29/2023, 10/22/2022, 10/22/2022, Additional history exists Colon Cancer Screening-Colonoscopy 01/29/2027 01/29/2017 DTaP/Tdap/Td Vaccine (3 - Td or Tdap) 01/21/2028 01/20/2018, 03/20/2011 Colon Cancer Screening-CT Colonography Discontinued 01/29/2017 Colon Cancer Screening-DNA Stool Discontinued 01/30/20 Colon Cancer Screening-FIT Discontinued 01/29/2017 Colon Cancer Screening-Sigmoidoscopy Discontinued 01/29/2017 Zoster Vaccine Completed 07/07/2020, 03/16/2020 Procedures Procedure Name Priority Date/Time Associated Diagnosis Comments SCREENING MAMMOGRAM BILATERAL W SRINIVASA Schedule Routine, Read Routine (OP Routine) 10/29/2023 9:46 AM CDT Family history of breast cancer COLONOSCOPY REPORT 01/29/2017 from Last 3 Months or Most Recently Relevant to Health Maintenance Results * Screening Mammogram Bilateral W Srinivasa (10/29/2023 9:46 AM CDT) Anatomical Region Laterality Modality Breast Bilateral Mammography Narrative 10/29/2023 1:27 PM CDT Mammogram Technique: Bilateral Digital Breast Tomosynthesis, Bilateral C-view 2D Screening mammogram. Views obtained: bilateral craniocaudal and bilateral mediolateral oblique. Computer Aided Detection was performed. Mammogram Findings: The present examination has been compared to prior imaging studies performed at [facility] on 05/26/2019, 10/18/2021 and 10/22/2022. There are scattered areas of fibroglandular density. There is no suspicious abnormality in either breast. Impression: There is no mammographic evidence of malignancy. Annual screening mammography is recommended. OVERALL FINAL ASSESSMENT: BI-RADS CATEGORY 1: Negative. Procedure Note Huma Núñez MD - 10/29/2023 Mammogram Technique: Bilateral Digital Breast Tomosynthesis, Bilateral C-view 2D Screening mammogram. Views obtained: bilateral craniocaudal and bilateral mediolateral oblique. Computer Aided Detection was performed. Mammogram Findings: The present examination has been compared to prior imaging studies performed at [facility] on 05/26/2019, 10/18/2021 and 10/22/2022. There are scattered areas of fibroglandular density. There is no suspicious abnormality in either breast. Impression: There is no mammographic evidence of malignancy. Annual screening mammography is recommended. OVERALL FINAL ASSESSMENT: BI-RADS CATEGORY 1: Negative. Promise Haskins NP IMG MAMMO PROCEDURES Fin al Result * COLONOSCOPY REPORT (01/29/2017) Anatomical Region Laterality Modality Other Provider Scanning GI PROCEDURE ORDERABLES Final Result from Last 3 Months or Most Recently Relevant to Health Maintenance Insurance MEDICARE [facility] [address] [place] [address] MEDICARE [facility] MEDICARE [facility] [place] [id number] [facility] MEDICARE ADVANTAGE Care Teams Health Claims Examiner Relationship Specialty Start Date End Date Ethan Chapa MD [address] [place] [address] PCP - General Family Medicine 05/18/22 Nicanor Perry MD [address] [place] [address] 01/21/18
--- OUTSIDE RECORDS SUMMARY | 2024-09-17 13:42 | XMS_ITS ---
Author Organization [facility] Address [address] [facility] [address] [place] [address] Care Team Providers Care Associate Financial Representative Name Role Phone Theresa BREWSTER, Harley Primary Care Provider Unava Leandro Mcwilliams Unavailable [phone] REASON FOR VISIT New Refill Request Social History Sex Assigned At : Social History Observation Description Sex Assigned At Female Encounters Encounter Location Date Provider Diagnosis [facility] [address] [facility] [address] [place] [address] 09/16/2024 Leandro Roach Plan Of Treatment Next Appt Details Provider Name:Leandro Roach , 10/08/2024 01:00:00 PM, [address], [facility] [address], [place], [address], Progress Notes * TARIQ DOMINGUEZOB:1950 (74 yo F)Acc No.[id number]:09/16/2024 Patient: WILBER SANCHEZ :1950 A ge:74 Y S ex:Female [facility] [address] [place], [address] * * Date:
--- OUTSIDE RECORDS SUMMARY | 2024-09-17 13:42 | XMS_ITS ---
Author Organization formerly [facility] Address [address] [place] [address] Care Team Providers Care Slip Box Changer Name Role Phone Nicanor Perry MD Unavailable Ethan Chapa MD Primary Care Provider [phone] Active Problems Problem Noted Date Diagnosed Date [...] Neoplasm of connective and soft tissue 3 Current Treatment and Therapy Plans No current plan information found. Past Treatment and Therapy Plans No past plan information found. Lifetime Dose Tracking * Chemical Lifetime Dose Automatic Entry Manual Entr y DLP 1,695 mGycm 1,695 mGycm 0 mGycm
--- OUTSIDE RECORDS SUMMARY | 2024-09-17 13:42 | XMS_ITS | Encounter Summary ---
Author Organization [facility] Healthcare Address [address] [place] [address] Care Team Providers Care Pulp Bleacher Name Role Phone Nicanor Perry MD Unavailable Nicanor Perry MD Primary Care Provider [phone] Ethan Chapa MD Primary Care Provider [phone] Encounter Details Date Type Department Care Team (Late st Contact Info) Description 08/29/2021 Telephone [facility] Radiology [address] [place], [place] [id number] Jaden Kam Jr., MD [address] [place] [address] Social History Tobacco Use Types Packs/Day Years Used Date Smoking Tobacco: Former Smokeless Tobacco: Never Alcohol Use Standard Drinks/Week Comments Yes 0 (1 standard drink = 0.6 oz pur e alcohol) Comments No Sex and Gender Information Value Date Recorded Sex Assigned at Not on file Legal Sex Female 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 Gender Identity Female 10/11/2023 9:20 AM CDT Sexual Orientation Not on file Occupation Industry Job Start Date Job End Date retired Not on file Not on file Not on file documented as of this encounter Plan of Treatment Not on file documented as of this encounter Visit Diagnoses Not on filedocumented in this encounter Additional Health Concerns Infection Onset Date Last Indicated Resolved Time COVID: Suspected 05/18/2022 05/18/2022 05/18/2022 11:59 AM WOOL WASHER FEEDER documented as of this encounter Care Teams Pulp Bleacher Relationship Specialty Start Date End Date Nicanor Perry MD [address] [place] [address] PCP - General Family Medicine 02/26/18 05/17/22 Ethan Chapa MD [address] [place] [address] PCP - General Family Medicine 05/18/22 Nicanor Perry MD [address] [place] [address] 01/21/18 documented as of this encounter
--- OUTSIDE RECORDS SUMMARY | 2024-09-17 13:42 | XMS_ITS | Clinical Summary ---
Author Organization [facility] Address [address] [place] [address] Care Team Providers Care Drop Wire Stringer Name Role Phone Unavailable Primary Care Provider Unavailabl e Source Comments [facility],non-owned Affiliates and Associated Physician Practices is amultiple site organization consisting of ambulatory clinics and hospital sitesin [place], [place], [place] and [place]. This disclosure is being madepursuant to the Care Everywhere program and may not contain all information available regarding this patient. Last updated 18.[facility] Allergies Active Allergy Reactions Criticality Noted Date Comments Sulfa Drugs Rash Medium 06/05/2019 Immunizations Name Administration Dates Next Due INFLUENZA VACCINE, HIGH-DOSE , QUADR. (FLUZONE HIGH-DOSE QUADRIVALENT; 65Y+), 0.7 ML (HD-IIV4) 03/04/2020,06/05/2019 Social History Tobacco Use Types Packs/Day Years Used Date Smoking Tobacco: Never Assessed Sex and Gender Information Value Date Recorded Sex Assigned at Not on file Gender Identity Not on file Sexual Orientation Not on file Plan of Treatment Health Maintenance Due Date Last Done Comments BONE DENSITY TESTING 1950 COLOGUARD (AGES 45-75) - COLON CA SCREENING 1950 COLON MONITORING 1950 COLONOSCOPY - COLON CA SCREENING 1950 CT COLONOGRAPHY - COLON CA SCREENING 1950 Colorectal Cancer Screening 1950 FIT - COLON CA SCREENING 1950 FLEX SIG - COLON CA SCREENING 1950 LIPID TESTING 1950 MAMMOGRAM 1950 HEPATITIS C SCREENING 06/24/1969 DTAP/TDAP/TD VACCINES (1 - Tdap) 1970 PNEUMOCOCCAL VACCINE 50+ (1 of 1 - PCV) 2001 ZOSTER VACCINE (1 of 2) 2001 COVID-19 VACCINE (2023- season) 2024 INFLUENZA VACCINE (#1) 2024 0, 06/05/2019, 04/08/2018, Additional history exists DEPRESSION SCREENING 06/24/2024 Respiratory Syncytial Virus (RSV) Vaccine Pt: or over 60 yrs (1 - 1-dose 75+ series) 2026 HEPATITIS B VACCINE Aged Out No longe r eligible based on patient's age to complete this topic HIB VACCINE Aged Out No longer eligi ble based on patient's age to complete this topic HPV VACCINE Aged Out No longer eligi ble based on patient's age to complete this topic MENINGOCOCCAL (Group B) VACCINE SHARED DECISION-MAKING Aged Out No longer eligible based on patient's age to complete this topic MENINGOCOCCAL GROUPS A/C/Y/W VACCINE Aged Out No longer eligible based on patient's age to complete this topic
--- OUTSIDE RECORDS SUMMARY | 2024-09-17 13:42 | XMS_ITS | Clinical Summary ---
Author Organization [facility] Care Team Providers Care Service Establishment Attendant Name Role Phone Unavailable Primary Care Provider Unavailabl e Social History Tobacco Use Types Packs/Day Years Used Date Smoking Tobacco: Never Assessed Comments Unknown Sex and Gender Information Value Date Recorded Sex Assigned at Not on file Legal Sex Female 1:16 PM CDT Gender Identity Not on file Sexual Orientation Not on file Plan of Treatment Health Maintenance Due Date Last Done Comments DEXA Bone Density 1950 Hepatitis C Virus (HCV) Screening 1950 TdaP Immunization 1950 Colonoscopy 1996 Colorectal Cancer Screening 1996 Cologuard 2001 Immunochemical Fecal Occult Blood 2001 Mammogram 2001 Pneumococcal Immunization (5 0+ years) (1 of 1 - PCV) 2001 Zoster Immunization (2 of 2) 09/01/2020 07/07/2020 Influenza Immunization (#1) 02/23/202402/22, 06/05/2019, 04/08/2018 SARS-COV-2 Immunization ( season) 2024 09/13/2020, 08/04/2020 Respiratory Syncytial Virus (RSV) Immunization (Adult) (1 - 1-dose 75+ series) 2026 DTaP/Tdap/Td Immunization Discontinued 01/20/2018 Hepatitis B Immunization Aged Out No longer eligible based on patient's age to complete this topic Meningococcal Immunization (ACWY) Aged Out No longer eligible based on patient's age to complete this topic Rotavirus Immunization Aged Out No lo nger eligible based on patient's age to complete this topic
--- OUTSIDE RECORDS SUMMARY | 2024-09-17 13:42 | XMS_ITS | Encounter Summary ---
Author Organization [facility] Healthcare Address [address] [place] [address] Care Team Providers Care Char Filter Tank Tender Head Name Role Phone Nicanor Perry MD Unavailable Ethan Chapa MD Primary Care Provider [phone] Reason for Visit * Reason Onset Date Comments ready to schedule 09/25/2022 Encounter Details Date Type Department Care Team (Late st Contact Info) Description 09/25/2022 Telephone [facility] Services [address] [place] [phone] Miscellaneous, Not In File ready to schedule Social History Tobacco Use Types Packs/Day Years Used Date Smoking Tobacco: Former Smokeless Tobacco: Never Alcohol Use Standard Drinks/Week Comments Yes 0 (1 standard drink = 0.6 oz pur e alcohol) Comments No Sex and Gender Information Value Date Recorded Sex Assigned at Not on file Legal Sex Female 2:02 AM CEMENT MIXER Gender Identity Female 10/11/2023 9:20 AM CDT Sexual Orientation Not on file Occupation Industry Job Start Date Job End Date retired Not on file Not on file Not on file documented as of this encounter Plan of Treatment Not on file documented as of this encounter Visit Diagnoses Not on filedocumented in this encounter Care Teams Char Filter Tank Tender Head Relationship Specialty Start Date End Date Ethan Chapa MD [address] [place] [address] PCP - General Family Medicine 05/18/22 Nicanor Perry MD [address] [place] [address] 01/21/18 documented as of this encounter
--- OUTSIDE RECORDS SUMMARY | 2024-09-17 13:42 | XMS_ITS | Referral Summary ---
Author Organization [facility] Address [address] [place] [address] Care Team Providers Care Preparer Making Department Name Role Phone Nicanor Perry MD Unavailable Ethan Chapa MD Primary Care Provider [phone] Encounters Date Type Department Care Team Description 09/01/[address] [facility] Neurosurgery [address] [facility] Advanced Medicine [address]th [place] [address] [place] [address] Jaden Kam Jr., MD 09/01/[address] [facility] Neurosurgery [address] [facility] Advanced Medicine [address]th [place] [address] [place] [address] Ashia Pratt NP Brain lesion (Primary Dx) from Last 3 Months Allergies Active Allergy Reactions Criticality Noted Date [...] tabletIndicati ons:Mixed hyperlipidemia ,Coronary artery disease involving [place] coronary artery of [place] heart without angina pectoris Take 1 tablet [...] Neoplasm of connective and soft tissue 3 Immunizations Immunization Administration Dates Next Due Influenza, Quadrivalent, Split, Intramuscular Influenza, Quadrivalent, Spl it, Preservative Free, Intramuscular 04/08/2018 Influenza, Trivalent, High D ose, Split, Preservative Free, Intramuscular 03/04/2020,06/05/2019 Influenza, Trivalent, IM (MDV) 03/05/2011 Influenza, Trivalent, Preservative Free, Intramu scular 03/24/2016 Moderna SARS-CoV-2 Monovalent Vaccination (12+ Y RS) 09/13/2020,08/04/2020 TD Preservative Free 01/20/2018 Tdap 03/20/2011 ZOSTER Recombinant 07/07/2020,03/16/2020 Social History Tobacco Use Types Packs/Day Years [...] on file Legal Sex 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 Gender Identity Female 10/11/2023 9:20 AM CDT Sexual Orientation Not on file Occupation Industry Job Start Date Job End Date retired Not on file Not on file Not on file Last Filed Vital Signs Vital Sign Reading Time Taken Comments Blood Pressure 136/64 08/12/2023 5:48 PM RIVET MACHINE OPERATOR Pulse 56 08/12/2023 5:48 PM RIVET MACHINE OPERATOR Temperature 36.6 C (97.8 F) 08/12/2023 10:20 AM RIVET MACHINE OPERATOR Respiratory Rate 18 08/12/2023 5:48 PM RIVET MACHINE OPERATOR Oxygen Saturation 98% 08/12/2023 5:48 PM RIVET MACHINE OPERATOR Inhaled Oxygen Concentration - - Weight 90.7 kg (200 lb) 08/12/2023 10:20 AM RIVET MACHINE OPERATOR Height 160 cm (5' 3 ) 08/12/2023 10:20 AM RIVET MACHINE OPERATOR Body Mass Index 35.43 08/12/2023 10:20 AM RIVET MACHINE OPERATOR Plan of Treatment Not on file Procedures Procedure Name Priority Date/Time Associated Diagnosis [...] compared to prior imaging studies performed at [facility] on 05/26/2019, 10/18/2021 and 10/22/2022. There are [...] compared to prior imaging studies performed at [facility] on 05/26/2019, 10/18/2021 and 10/22/2022. There are [...] Recently Relevant to Health Maintenance Insurance MEDICARE [facility] MEDICARE UHC MEDICARE ADVANTAGE [facility] MEDICARE ADVANTAGE Care Teams Preparer Making Department Relationship Specialty Start Date End Date Ethan Chapa MD [address] [place] [address] PCP - General Family Medicine 05/18/22 Nicanor Perry MD [address] [place] [address] 01/21/18
--- OUTSIDE RECORDS SUMMARY | 2024-09-17 13:43 | XMS_ITS ---
Author Organization [facility] Address [facility] [facility] [address] [facility] [address] [place] [address] Care Team Providers Care Neck Pinner Name Role Phone Harley Cardenas MD Primary Care Provider Leandro Guy Unavailable [phone] REASON FOR VISIT New Refill Request Medications Medication SIG (Take, Route, Frequency, Duration) Notes Start Date End Date Status Metoprolol-hydroCHLOROthia zide 100-25 MG 1 tablet with a meal Orally Once a day for 30 days Active Social History Sex Assigned At : Social History Observation Description Sex Assigned At Female Encounters Encounter Location Date Provider Diagnosis [address] [address] 08/14/2024 Leandro Roach Plan Of Treatment Medication Medication Name Sig Start Date Stop Date Notes Metoprolol-hydroCHLOROthiazi de 100-25 MG 1 tablet with a meal Orally Once a day for 30 days Next Appt Details Provider Name:Leandro Roach , 10/08/2024 01:00:00 PM, [facility] [facility] [address] [facility] [address], [address], Progress Notes * TARIQ DOMINGUEZOB:1950 (74 yo F)Acc No.[id number]:08/14/2024 Patient: Nicanor WILBER CARDONA :1950 A ge:74 Y S ex:Female Address:[address] [place] [address], [place], [address] * Refills Refill Metoprolol-hydroCHLOROthiazide Tablet, 100-25 MG, Orally, 30, 1 tablet with a meal, Once a day, 30 days, Refills=0 * true * Date: Generated for Elbert verdugo/Deshawn/Kota on: 0 09/17/2024 01:42 PM CDT
--- OUTSIDE RECORDS SUMMARY | 2024-09-17 13:43 | XMS_ITS ---
Author Organization [facility] Address [address] [place] [address] Care Team Providers Care Principal Administrative Clerk Name Role Phone Harley Cardenas MD Primary Care Provider Leandro Guy Unavailable [phone] REASON FOR VISIT Patient is here for Cognitive Testing Medications Medication SIG (Take, Route, Frequency, Duration) Notes Start Date End Date Status Metoprolol-hydroCHLOROthia zide 100-25 MG 1 tablet with a meal Orally Once a day for 30 days Active Pregabalin 75 MG TAKE 1 CAPSULE BY MOUTH TWICE DAILY Oral for 30 Days Active Sertraline HCl 50 MG 1.5 tablet Oral Onc e a day for 90 days Active Methylphenidate HCl 10 MG 1 tablet in th e morning by mouth once a day for 30 days 08/15/2024 09/14/2024 Active busPIRone HCl 5 MG 1 tablet Oral Twice a day for 90 days Active Omeprazole 40 MG Oral for 90 Days Active ALPRAZolam 0.25 MG 1 tablet Orally once a day for 10 days As needed 07/09/2024 Active traMADol HCl 50 MG TAKE 1 TABLET BY MOUTH EVERY 12 HOURS NEEDED FOR PAIN Oral for 7 Days Not-Taking Pregabalin 75 MG TAKE 1 CAPSULE BY MOUTH TWICE DAILY Oral for 30 Days Not-Taking ALPRAZolam 0.25 MG 1 tablet by mouth once a day for 30 days 06/12/2024 Active traMADol HCl 50 MG TAKE 1 TABLET BY MOUTH EVERY 12 HOURS NEEDED FOR PAIN Oral for 7 Days Active Social History Sex Assigned At : Social History Observation Description Sex Assigned At Female Encounters Encounter Location Date Provider Diagnosis [facility] [address] [facility] [place] [address] 09/14/2024 Leandro Muller Mild cognitive impairment, so stated G31.84 Assessments Encounter Date Diagnosis (ICD Code) Assessment Notes Treatment Notes Treatment Clinical Notes Section Notes 09/14/2024 Mild cognitive impairment, so stated (ICD-10 - G31.84) Cognitive Function Summary and Interpretation Subject: Sandra Kulkarni Date of : 1950 Age: 74 Assessment Date: September 14, 2024 1. Assessment Tools Used SLUMS ([facility] Mental Status Examination) Score: 30 (out of 30) Interpretation: Consistent with normal cognitive function across domains tested, including memory, attention, calculation, and executive comprehension. IQCODE-SR (Informant Questionnaire on Cognitive Decline in the Elderly - Self-Report) Average Score: 3.88 Interpretation: A score approaching 4 indicates moderate perceived decline in cognitive functioning over the past 10 years. Several responses indicate subjectively perceived worsening, particularly in daily memory and reasoning tasks. Creyos Cognitive Battery Summary 6 tasks completed Compared to females aged 65 to 74 2. Cognitive Performance Profile (Creyos Scores) Domain Task Score Interpretation Attention Feature Match 94 Low-average range Episodic Memory Paired Associates 98 Average Response Inhibition Double Trouble 106 Above average - effective impulse control Working Memory Number Ladder 104 Above average visuospatial memory Mental Rotation Rotations 94 Low-average spatial visualization Verbal Short-Term Memory Digit Span 92 Low-average auditory-verbal capacity 3. Self-Reported Memory and Functional Observations (IQCODE Highlights) Marked decline noted in: Remembering conversations and recently learned information Learning new things and adapting to new technology Making decisions and recalling where things are kept Areas of relative stability: Understanding reasoning tasks Remembering address and phone number Handling familiar financial or arithmetic tasks 4. Cross-Analysis of Results Objective Cognitive Tests (Creyos, SLUMS): Performance is within normal limits. SLUMS score of 30 indicates intact cognitive functioning across all basic domains. Self-Reported Decline (IQCODE): Multiple subjective concerns were reported, especially in memory and learning, indicating the person feels cognitively less efficient compared to 10 years ago. Congruency Evaluation: Results are non-congruent. Objective data does not currently confirm cognitive impairment, while subjective perception reflects moderate decline. This may suggest: Heightened personal concern about aging Mild anxiety or mood influences on perceived performance Early functional shifts not yet detectable on standard assessments 5. Recommendations Cognitive Health Maintenance: Continue engaging in regular cognitive stimulation activities such as reading, puzzles, and social interactions Encourage use of compensatory strategies such as lists, reminders, and calendars for daily organization Monitor Functional Changes: Track changes using follow-up IQCODE and cognitive testing every 6 to 12 months Pay particular attention to difficulties in daily tasks such as remembering appointments, managing money, or adapting to new routines Lifestyle Considerations: Maintain cardiovascular and metabolic health (e.g., physical activity, sleep, diet), as these impact long-term cognitive resilience Consider stress or mood screening if subjective concerns persist without objective findings Conclusion Sandra Kulkarni shows intact cognitive function based on standardized testing, but has self-reported declines in several memory-related and daily reasoning areas. Current findings do not support a diagnosis of cognitive impairment, but ongoing observation is warranted due to subjective changes. Proactive cognitive wellness strategies and periodic reassessment are recommended. Plan Of Treatment Next Appt Details Follow Up: Follow up with or dering provider on 10/08, Reason: MCI Test result review Provider Name:Leandro Muller , 10/08/2024 01:00:00 PM, [facility], [facility] [address], [place], [address], Procedure Notes * Category Sub-Category Detail Notes Mild Cognitive Impairment (MCI) Testing MCI Resu lts MCI Test Results SLUMS Progress Notes * RADHA KULKARNIHDOB:1950 (74 yo F)Acc No.[id number]:09/14/2024 Patient: SANDRA SANCHEZ Provider: Jose MULLER MD :1950 A ge:74 Y S ex:Female Date:09/14/2024 Address:[address] [place], [place] [id number] Pcp:Harley Cardenas MD Subjective: * Chief Complaints: * P atient is here for Cognitive Testing * HPI: H PI: Patient had MCI testing Patient was identified, and logged into PC Test was admistered in office Staff supervising the test: Janeen Muller. * Medical History: * Surgical History: * Hospitalization/Major Diagno stic Procedure: * Medications: T akingPregabalin 75 MG Capsule TAKE 1 CAPSULE BY MOUTH TWICE DAILY Oral traMADol HCl 50 MG Tablet TAKE 1 TABLET BY MOUTH EVERY 12 HOURS NEEDED FOR PAIN Oral Omeprazole 40 MG Capsule Delayed Release Oral ALPRAZolam 0.25 MG Tablet 1 tablet by mouth once a day ALPRAZolam 0.25 MG Tablet 1 tablet Orally once a day As neededbusPIRone HCl 5 MG Tablet 1 tablet Oral Twice a day Methylphenidate HCl 10 MG Tablet 1 tablet in the morning by mouth once a day , stop date 09/14/2024Metoprolol-hydroCHLOROthiazide 100-25 MG Tablet 1 tablet with a meal Orally Once a day Sertraline HCl 50 MG Tablet 1.5 tablet Oral Once a day Taking Pregabalin 75 MG Capsule TAKE 1 CAPSULE BY MOUTH TWICE DAILY Oral Taking traMADol HCl 50 MG Tablet TAKE 1 TABLET BY MOUTH EVERY 12 HOURS NEEDED FOR PAIN Oral Taking Omeprazole 40 MG Capsule Delayed Release Oral Taking ALPRAZolam 0.25 MG Tablet 1 tablet by mouth once a day Taking ALPRAZolam 0.25 MG Tablet 1 tablet Orally once a day As neededTaking busPIRone HCl 5 MG Tablet 1 tablet Oral Twice a day Taking Methylphenidate HCl 10 MG Tablet 1 tablet in the morning by mouth once a day , stop date 09/14/2024Taking Metoprolol-hydroCHLOROthiazide 100-25 MG Tablet 1 tablet with a meal Orally Once a day Taking Sertraline HCl 50 MG Tablet 1.5 tablet Oral Once a day Not-TakingPregabalin 75 MG Capsule TAKE 1 CAPSULE BY MOUTH TWICE DAILY Oral traMADol HCl 50 MG Tablet TAKE 1 TABLET BY MOUTH EVERY 12 HOURS NEEDED FOR PAIN Oral Not-Taking Pregabalin 75 MG Capsule TAKE 1 CAPSULE BY MOUTH TWICE DAILY Oral Not-Taking traMADol HCl 50 MG Tablet TAKE 1 TABLET BY MOUTH EVERY 12 HOURS NEEDED FOR PAIN Oral Objective: * Vitals: * Examination: N eurology: Cognition Assessment Tools Used T otal score SLUMS 3 0 Slums Score T otal score IQCODE 3 .88 IQCODE score Assessment: * Assessment: 1. M ild cognitive impairment, so stated - G31.84 Plan: * Treatment: * Procedures: M ild Cognitive Impairment (MCI) Testing: SLUMS MCI Results M CI Test Results. * Procedure Codes: 9 6132 NEUROPSYCHOLOGICAL TESTING EVALUATION SERVICES FIRST [id number] PSYCHOLOGICAL OR NEUROPSYCHOLOGICAL TEST ADMINISTRATION AND SCORING BY CALENDER RUNNER, TWO OR MORE TESTS, ANY METHOD; FIRST 30 [id number] PSYCHOLOGICAL OR NEUROPSYCHOLOGICAL TEST ADMINISTRATION AND SCORING BY CALENDER RUNNER, TWO OR MORE TESTS, ANY METHOD; EACH ADDITIONAL 30 MINUTES (LIST SEPARATELY IN ADDITION TO CODE FOR PRIMARY PROCEDURE)G9916 Funct status past 12 months * Follow Up: Loree salinas up with ordering provider on 10/08 (Reason: MCI Test result review) * Billing Information: * Visit Code: * Procedure Codes: 56672 NEUROPSYCHOLOGICAL TESTING EVALUATION SERVICES FIRST HOUR. 66825 PSYCHOLOGICAL OR NEUROPSYCHOLOGICAL TEST ADMINISTRATION AND SCORING BY CALENDER RUNNER, TWO OR MORE TESTS, ANY METHOD; FIRST 30 MINUTES. 50110 PSYCHOLOGICAL OR NEUROPSYCHOLOGICAL TEST ADMINISTRATION AND SCORING BY CALENDER RUNNER, TWO OR MORE TESTS, ANY METHOD; EACH ADDITIONAL 30 MINUTES (LIST SEPARATELY IN ADDITION TO CODE FOR PRIMARY PROCEDURE). G9916 Funct status past 12 months. Images * Procedures/Mild Cognitive Im pairment (MCI) Testing/[email or web address] Procedures/Mild Cognitive Im pairment (MCI) Testing/[email or web address]_[email or web address] * Sign off status: Completed true * Provider: Jose MLULER MD Date: 0 09/14/2024 Generated for Elbert verdugo/Deshawn/eTransmitting on: 0 09/17/2024 01:42 PM CDT History and Physical Notes * HPI (History of Present Illness) Category Sub-Category Detail Notes Category Not es HPI Patient had MCI testing Patient was identified, and logged into PC Test was admistered in office Staff supervising the test: Janeen Muller Examination Category Sub-Category Detail Notes Category Not es Neurology Cognition Assessment Tools Used Total score SLUMS: 30 Slums Score Total score IQCODE: 3.88 IQCODE score
== END 2024-09-17 12:54 | disposition home or self-care (01) ==
LOC: ANHAUDASC 12:53
PROVIDERS: PCP Family Medicine; Visit Provider Nurse Practitioner Family
DX: H90.3 Sensorineural hearing loss, bilateral (principal)
CPT/HCPCS: 92557; 92567

== ENCOUNTER 2025-02-12 08:18 | Outpatient (CLI) | payer MEDICARE, SELFPAY ==
--- NOTE | ~2025-02-12 | DEXA_ITS ---
Bone Density Report Name: WILBER DOMINGUEZ Age: 74 Sex: Female Ethnicity: White Date of : 1950 Indication: postmenopausal; screening for osteoporosis; height loss; cancer; hysterectomy; Referring Provider: ÁNGEL CHAN Study: Bone densitometry was performed. Exam Date: February 12, 2025 Accession number: [id number] Bone Density: Region BMD T-score Z-score Classification AP Spine(L1-L4) 1.011 -0.3 2.0 Normal Femoral Neck (Left) 0.664 -1.7 0.3 Osteopenia Total Hip (Left) 0.947 0.0 1.7 Normal Femoral Neck (Right) 0.714 -1.2 0.8 Osteopenia Total Hip (Right) 0.925 -0.1 1.6 Normal Total Hip Mean 0.936 -0.1 1.7 Normal World Health Organization criteria for BMD impression classify patients as: Normal (T-score at or above -1.0), Osteopenia (T-score between -1.0 and -2.5), or Osteoporosis (T-score at or below -2.5). 10-year Fracture Risk(1): Major Osteoporotic Fracture 10% Hip Fracture 1.9% Reported Risk Factors: [place] (), Neck BMD=0.664, BMI=35.3 (1) FRAX(R) Version 3.08. Fracture probability calculated for an untreated patient. Fracture probability may be lower if the patient has received treatment. Previous Exams: -- Region Exam Age BMD T-score BMD Change BMD Change Date g/cm2 vs Baseline vs Previous -- AP Spine (L1-L4) 02/12/2025 74 1.011 -0.3 -2.8%* -2.8%* 02/21/2022 71 1.040 -0.1 Total Hip(Left) 02/12/2025 74 0.947 0.0 -1.2% -1.2% 02/21/2022 71 0.958 0.1 Total Hip(Right) 02/12/2025 74 0.925 -0.1 -5.1%* -5.1%* 02/21/2022 71 0.975 0.3 -- *Denotes significance at 95% confidence level, LSC for AP Spine = 0.022 g/cm2, LSC for Total Hip = 0.027 g/cm2 Clinical Information Provided by Patient: Has used the following medications: Vitamin D Has the following medical conditions: Cancer, Hysterectomy Patient maximum height was 64 Menopause Age: 33 No regular weight bearing exercise Does not regularly consume dairy products Drinks caffeinated beverages Onset of menses at age 11 Number of children 3 Impression: The patient has low bone mass, based on the Left Femoral Neck T-score. The patient has an estimated ten-year risk of hip fracture of 1.9% and an estimated ten-year risk of major fracture of 10%, based on the WHO FRAX algorithm. The BMD for the AP Spine (L1-L4) decreased, changing by -2.8% since the last DXA exam. The BMD for the Total Hip(Right) decreased, changing by -5.1% since the last DXA exam. Discussion: BONE DENSITY IS LOW AT ONE OR MORE SKELETAL SITES. This patient's lowest T-score is low at one or more skeletal sites. It meets the World Health Organization's (WHO) criteria for ?low bone mass? (T-score between -1.0 and -2.5). The patient's 10-year risk of fracture as calculated by FRAX is less than the threshold where pharmacological therapy is recommended by the National Osteoporosis Foundation (NOF). However, all treatment decisions require clinical judgment and consideration of individual patient factors, including patient preferences, comorbidities, previous drug use, risk factors not captured in the FRAX model (e.g., frailty, falls, vitamin D deficiency, increased bone turnover, interval significant decline in bone density) and possible under or overestimation of fracture risk by FRAX. The patient should follow a healthful lifestyle (good nutrition with adequate calcium and vitamin D, and appropriate weight-bearing exercise). Follow-Up: Consider repeating this study in 2 years to reassess this patient's status, or sooner if there is some new clinical indication. Reported by: MARIA C on 02/12/2025 9:03:00 AM. Reviewed, dictated and finalized at location A.
== END 2025-02-12 08:19 | disposition home or self-care (01) ==
LOC: MICIMG 08:19
PROVIDERS: PCP Family Medicine; Visit Provider Family Medicine
DX: Z78.0 Asymptomatic menopausal state (principal); M85.852 Other specified disorders of bone density and structure, left thigh; M85.851 Other specified disorders of bone density and structure, right thigh
CPT/HCPCS: 77080